=== PATIENT | female | born 1960 | race Caucasian/White ===

== ENCOUNTER 2019-11-05 06:51 | Day surgery (SDC) | payer OTHER ==
[~2019-11-05 06:51] MED LIST: CIPRO500 MG PO; COZAAR50 MG; KETO10TA2 PO; LASIX20 MG; PAXIL PO; TENCON TABLET1 TAB PO
== END 2019-11-05 18:35 | disposition home or self-care (01) ==
LOC: CIR.AMB 06:51
DX: D26.1 Other benign neoplasm of corpus uteri (principal)